=== PATIENT | male | born 1975 ===

== ENCOUNTER 2017-10-09 16:02 | Inpatient (IN) | payer OTHER, MEDICAID ==
[2017-10-09 16:03] VITALS: BMI 34.0
[2017-10-09 18:10] LABS: BASO # 0.1 K/uL (0.0-0.2); BASO % 0.7 % (0.0-2.0); EOS # 0.1 K/uL (0.0-0.7); EOS % 2.1 % (0.0-4.0); LYMPH # 2.4 K/uL (1.0-4.3); LYMPH % 34.6 % (20.0-40.0); MEAN CELL VOLUME 86.8 fL (80.0-94.0); MEAN CORPUSCULAR HEMOGLOBIN 29.4 pg (27.0-31.0); MEAN CORPUSCULAR HGB CONC 33.8 g/dL (33.0-37.0); MONO # 0.3 K/uL (0.0-0.8); MONO % 5.1 % (0.0-10.0); NEUT # 3.9 K/uL (1.8-7.0); NEUT % 57.5 % (50.0-75.0); RBC 5.09 Mil/uL (4.40-5.90); RED CELL DISTRIBUTION WIDTH 13.8 % (11.5-14.5); WHITE BLOOD COUNT 6.8 K/uL (4.8-10.8)
[2017-10-09 18:23] LABS: ALB/GLOB RATIO 1.3 (1.0-2.1); ALT/SGPT 28 U/L (21-72); AST/SGOT 22 U/L (17-59); BLOOD UREA NITROGEN 11 mg/dL (9-20); GFR AFRICAN-AMERICAN > 60; GFR NON-AFRICAN AMERICAN > 60
--- NOTE | 2017-10-09 18:36 | C.PDOC ---
History Of Present Illness <Donald Bingham - Last Filed: 10/09/17 19:41> <Samuel Sarabia DO - Last Filed: 10/10/17 18:36> 43 y/o male presents to ED for evaluation of suicidal thoughts with no plan and denies homicidal ideation, hallucinations or any physical complaints at this time. (No LEONARDSamuel) <Donald Bingham - Last Filed: 10/09/17 19:41> History Per: Patient History/Exam Limitations: no limitations Onset/Duration Of Symptoms: Days Current Symptoms Are (Timing): Still Present Suicide/Self Injury Attempted (Context): None <Felipeluna Samuel LEONARD - Last Filed: 10/10/17 18:36> Chief Complaint (Nursing): Psychiatric Evaluation Past Medical History Reviewed: Historical Data, Nursing Documentation, Vital Signs - Medical History PMH: Anxiety, Bipolar Disorder, Depression, Diabetes, Paranoia, Schizophrenia Surgical History: Appendectomy Family History: States: No Known Family Hx - Social History Hx Tobacco Use: No Hx Alcohol Use: Yes (1-2 etoh in a week) Hx Substance Use: No - Immunization History Hx Tetanus Toxoid Vaccination: No (feels immunizations make him sick) Hx Influenza Vaccination: No Hx Pneumococcal Vaccination: No <No LEONARDSamuel - Last Filed: 10/10/17 18:36> Vital Signs: Last Vital Signs Temp 98.2 F 10/09/17 19:30 Pulse 74 10/10/17 16:04 Resp 20 10/09/17 19:30 BP 108/76 10/10/17 16:04 Pulse Ox 99 10/09/17 19:30 - [facility] GROUP PSYCHOTHERAPY (12/16/16) INDIVID PSYCHOTHERAP NEC (11/03/14) INDIVIDUAL PSYCHOTHERAPY, BEHAVIORAL (12/16/16) INDIVIDUAL PSYCHOTHERAPY, SUPPORTIVE (12/07/15) INJECT/INFUSE NEC (12/02/13) OTHER GROUP THERAPY (11/03/14) PSYCHIA INTERV/EVAL NEC (11/29/13) PSYCHIAT DRUG THERAP NEC (01/15/14) Review Of Systems Constitutional: Negative for: Fever, Chills Cardiovascular: Negative for: Chest Pain Respiratory: Negative for: Shortness of Breath Gastrointestinal: Negative for: Nausea, Vomiting Psych: Positive for: Suicidal ideation. Negative for: Depression <Samuel Sarabia DO - Last Filed: 10/10/17 18:36> Physical Exam - Physical Exam Appears: Non-toxic, No Acute Distress Skin: Warm, Dry, No Rash Head: Atraumatic, Normacephalic Oral Mucosa: Moist Neck: Normal ROM, Supple Cardiovascular: Rhythm Regular Respiratory: Normal Breath Sounds, No Rales, No Rhonchi, No Wheezing Gastrointestinal/Abdominal: Soft, No Tenderness, No Guarding, No Rebound Extremity: Normal ROM, Capillary Refill (<2 seconds) Neurological/Psych: Oriented x3 <No LEONARDSamuel - Last Filed: 10/10/17 18:36> ED Course And Treatment - Laboratory Results Result Diagrams: 10/09/17 18:06 10/09/17 18:06 <Donald Bingham - Last Filed: 10/09/17 19:41> - Laboratory Results Result Diagrams: 10/09/17 18:06 10/09/17 18:06 O2 Sat by Pulse Oximetry: 100 (RA) Pulse Ox Interpretation: Normal <No LEONARDSamuel - Last Filed: 10/10/17 18:36> Disposition Discussed With : Caio Villaseñor Doctor Will See Patient In The: Hospital Counseled Patient/Family Regarding: Diagnosis - Disposition Disposition Time: 19:42 - POA Present On Arrival: None, Blood Incompatibility <Donald Bingham - Last Filed: 10/09/17 19:41> <No LEONARDSamuel - Last Filed: 10/10/17 18:36> - Disposition Disposition: HOSPITALIZED Condition: STABLE - Clinical Impression Clinical Impression: Schizoaffective disorder <Donlad Bingham - Last Filed: 10/09/17 19:41> - Scribe Statement The provider has reviewed the documentation as recorded by the Scribe <No LEONARDSamuel - Last Filed: 10/10/17 18:36> - Scribe Statement Eric Lewis All medical record entries made by the Scribe were at my direction and personally dictated by me. I have reviewed the chart and agree that the record accurately reflects my personal performance of the history, physical exam, medical decision making, and the department course for this patient. I have also personally directed, reviewed, and agree with the discharge instructions and disposition. (Samuel Sarabia DO)
[2017-10-09 18:55] LABS: SQUAMOUS EPITHIAL 3 /hpf (0-5); URINE BILIRUBIN NEGATIVE (NEGATIVE); URINE BLOOD NEGATIVE (NEGATIVE); URINE CLARITY Hazy (Clear); URINE COLOR Yellow (YELLOW); URINE GLUCOSE (UA) 3+ mg/dL (Normal); URINE LEUKOCYTE ESTERASE TRACE Leu/uL (Negative); URINE NITRATE NEGATIVE (NEGATIVE); URINE PROTEIN NEGATIVE (NEGATIVE); URINE UROBILINOGEN NORMAL mg/dL (0.2-1.0)
[2017-10-09 19:32] LABS: BARBITURATES, UR NEGATIVE (NEGATIVE); BENZODIAZEPINES, UR NEGATIVE (NEGATIVE); OPIATES, UR NEGATIVE (NEGATIVE); PHENCYCLIDINE, UR NEGATIVE (NEGATIVE)
[2017-10-09 20:06] VITALS: RESP 20; TEMP 98.2
--- NOTE | 2017-10-09 21:16 | PCM.BM ---
<Eliecer Lloyd - Last Filed: 10/09/17 21:13> Treatment Plan Problems - Problems identified on initial assessmt Suicidal Ideation Date Initiated: 10/09/17 Time Initiated: 21:15 Assessment reference: NA Depression Date Initiated: 10/09/17 Time Initiated: 21:16 Assessment reference: NA Treatment assets and liabiliti Patient Assests: cooperative, self-reliant, ADL independent, physically healthy , negotiates basic needs Patient Liabilities: live alone (Homeless), financial problems (Homeless), poor support system (Family lives in [place], little to no contact), dietary restrictions (Diabetes), medical problems (Schizoaffective) - Milieu Protocol Maintain good personal hygiene: daily Encourage regular showers, every shift Remind patient to perform daily oral care, every shift Assist patient to perform ADL's Conduct patient checks and document Observation sheet: Q15 minutes (For safety) Maintain personal safety: every shift Educate patient to report safety concerns to staff, every shift Monitor environment for contraband/sharps Medication safety: Monitor for expected outcome, potential side effects: every shift, Assess barriers to learning: every shift, Assess readiness for medication education: every shift <Ilana Goldsmith - Last Filed: 10/10/17 10:42> Discharge/Continuing Care - Education Needs Education Needs: Patient Medication, Patient Coping Skills - Discharge Discharge Criteria: Tolerates medication w/o severe side effects, Free of Suicidal thoughts, Reduction of target symptoms <Clary Jin - Last Filed: 10/10/17 14:23> - Diagnosis (1) Schizoaffective disorder Status: Acute Interventions: 10/10/17 14:23 * Assess/adjust medications daily and /or as needed * See patient on an individual basis 7x/week to assess status of hallucinations * Discuss risks, benefits, side effects and alternatives of medications *
--- NOTE | 2017-10-10 11:25 | PCM.PSYCH ---
Initial Psychiatric Evaluation - Initial Psychiatric Evaluation Chief Complaint (in patient's own words): depressed History of Present Illness and Precipitating Events: 42 year old Male with PMHx DM was brought in due to depression and wanting to kill himself. He is single, no children, lives in senior care and supports himself with social security. He usually resides in [place] but stated he rather reside in [place]. Admitted to previous hospitalization 1 year ago in [place] and 2 years back here at [facility] for similar psych issues. Patient reported when he's on haldol and cogentin he does well. But he ran out of his medications and hasn't been taking it. In recent events, patient has been feeling depressed for the past 2-3 days and had thoughts of killing himself. He had no plan in mind, he shared this with a local police officer crime prevention and was brought in. Denied any current suicidal, homicidal ideation, he reports he feels safe here. Denied any auditory, visual, or tactile hallucinations. Denied any thoughts of paranoia. Past Medical History: DM Past Psych History: Schizoaffective Disorder, depressed, Major Depressive Disorder Family Psych History: Denied Current Medications: Active Medications Generic Name Dose Route Start Last Admin Trade Name Freq PRN Reason Stop Dose Admin Acetaminophen 650 mg 10/09/17 21:20 Tylenol 325mg Tab PO Q6 PRN Fever >100.4 F Benztropine Mesylate 2 mg 10/09/17 21:20 Cogentin PO Q6 PRN Extra Pyramidal Symptoms Benztropine Mesylate 1 mg 10/10/17 18:00 Cogentin PO BID TON Diphenhydramine HCl 50 mg 10/09/17 21:20 Benadryl PO Q6 PRN Extra Pyramidal Symptoms Haloperidol 5 mg 10/09/17 21:20 Haldol PO Q8 PRN Moderate Agitation Haloperidol 5 mg 10/10/17 18:00 Haldol PO BID TON Hydroxyzine HCl 25 mg 10/09/17 21:20 Atarax PO Q6 PRN Agitation Metformin HCl 1,000 mg 10/10/17 17:00 Glucophage PO BIDCC TON Pneumococcal Polyvalent Vaccine 0.5 ml 10/11/17 10:00 Pneumovax 23 Vaccine IM 10/11/17 10:01 .ONCE ONE Trazodone HCl 50 mg 10/09/17 22:00 10/09/17 22:02 Desyrel PO Not Given HS [facility] Past Psychiatric History - Past Psychiatric History Pertinent Medical Hx (Current Medical&Sleep Prob, Allergies): Allergies Allergy/AdvReac Type Severity Reaction Status Date / Time divalproex sodium Allergy RASH Verified 12/06/15 23:00 [From Depakote] seafood Allergy RASH Uncoded 12/06/15 23:00 MetFORMIN [glucoPHAGE] 1,000 mg PO BIDWM #60 tab 12/18/16 Sertraline [Zoloft] 50 mg PO DAILY #30 tab 12/18/16 risperiDONE [RisperDAL Tab] 2 mg PO HS #30 tab 12/18/16 Review of Systems - Review of Systems All systems: reviewed and no additional remarkable complaints except - Psychiatric Psychiatric: Anxiety, Depression, Difficulty Concentrating, Hopelessness, Irritability. absent: Auditory Hallucinations, Hallucinations, Homicidal Ideation, Paranoia, Suicidal Ideation, Visual Hallucinations, Tactile Hallucinations Mental Status Examination - Personal Presentation Personal Presentation: Looks stated age - Affect Affect: Broad - Motor Activity Motor Activity: Calm - Reliability in Providing Information Reliability in Providing Information: Poor, due to altered mood, Poor, due to cognitve impairment - Speech Speech: Organized - Mood Mood: Depressed - Obsessions/Compulsions Obsessions: No Compulsions: No - Cognitive Functions Orientation: Person, Place, Situation, Time Judgement: Intact, as evidence by: Insight regarding need for hospitalization - Risk Risk: Suicidal DSM 5 DX - DSM 5 DSM 5 Diagnosis: Schizoaffective Disorder, Depressed type -Started on Cogentin and Haldol -CBT -Psychoeducation -Supportive therapy, group therapy, individual therapy Major Depressive Disorder, recurrent, severe without psychotic features -Attend group and activities -Individual therapy daily -Psychoeducation and support daily -Encourage compliance with meds and after care -Refer to outpatient program -Teach Healthy lifestyle methods, i.e. diet, exercise, meditation DW Dr. Jin, Brissa Hernandez DO, PGY-1
[2017-10-10 16:05] VITALS: BP 108/76; PULSE 74
[2017-10-10 18:37] VITALS: O2SAT 100
[2017-10-11] MEDS ORDERED: Pneumococcal 23-Valent Vaccine IM ONE (10:00)
--- NOTE | 2017-10-11 11:09 | PCM.PYCHDC ---
Mental Status Examination - Mental Status Examination Orientation: Person, Place, Situation, Time Memory: Impaired Mood: Anxious, Other (irate) Affect: Constricted Speech: Appropriate Attention: Poor Concentration: Poor Association: WNL Fund of Knowledge: Poor Formal Thought Process: Paranoia Suicidal Ideation: No Current Homicidal Ideation?: No Discharge Summary - Discharge Note Reason for Hospitalization: Suicidal, psychotic Laboratory Data: Abnormal Lab Results 10/10/17 10/11/17 20:21 07:56 POC Glucose (mg/dL) 188 H 188 H Consultations:: List each consultation separately and include: 1. Reason for request. 2. Findings. 3. Follow-up Summary of Hospital Course include:: 1. Description of specific treatment plan utilized for patients during their course of treatmen. 2. Summarize the time- course for resolution of acute symptoms and/or regressed behaviors. 3. Describe issues identified and worked on during hospitalization. 4. Describe medication utilized. 5. Describe medical problems identified and treated. 6. Reassessment of suicide risk Summary of Hospital Course: The pt was admitted and started on treatment with psychotherapy, support, psychoeducation and medications. MT used The pt did not attend any group. All the risks and benefits of medications are discussed and the patient understood and agreed. The pt improved quickly but instead of completing his treatment he signed out AMA He was recommended to go to a rehab Risks of leaving AMA incl. relapse discussed and he understood but still left - Diagnosis (1) Schizoaffective disorder Status: Acute - Final Diagnosis (DSM 5) Condition upon Discharge: STABLE DSM 5: Schizoaffective d/o -depressed r/o mild MR Disposition: AGAINST MEDICAL ADVICE Follow-up Treatment Plan: Use relapse prevention skills Return to ER or call 911 if suicidal, homicidal or symptoms relapse. Stay away from stress, alcohol and drugs. See primary doctor regularly and get labs.
== END 2017-10-11 12:03 | disposition left against medical advice (07) | DRG 885 ==
LOC: C.ER 16:02 → C.5E 19:43 → C.9E 19:43
PROVIDERS: ADMIT Psychiatry & Neurology Psychiatry; ATTEND Psychiatry & Neurology Psychiatry
PROC: GZ3ZZZZ Medication Management (ICD-10-PCS; principal; 2017-10-09)
PROC: GZHZZZZ Group Psychotherapy (ICD-10-PCS; 2017-10-09)
PROC: GZ56ZZZ Individual Psychotherapy, Supportive (ICD-10-PCS; 2017-10-09)
DX: F25.1 Schizoaffective disorder, depressive type (principal); F33.2 Major depressive disorder, recurrent severe without psychotic features; R45.851 Suicidal ideations; E11.9 Type 2 diabetes mellitus without complications